=== PATIENT | male | born 1965 | race Two or more races ===

== ENCOUNTER 2017-11-09 11:49 | Emergency (ER) | payer OTHER ==
[~2017-11-09] VITALS: Ht 165.1 cm; Wt 96.3 kg
[2017-11-09 12:05] VITALS: BP 141/90; Ht 165.1 cm; Wt 96.3 kg
[2017-11-09 13:48] LABS: BASOPHIL % 0.7 % (0-2); PLATELET COUNT 283 x10^3mcL (130-400)
[2017-11-09 13:50] LABS: RED CELL DISTRIBUTION WIDTH 14.7 % (11.5-14.5)
[2017-11-09 14:07] LABS: CALCIUM 8.9 mg/dL (8.5-10.1); CARBON DIOXIDE 22.1 mmol/L (21-32); CREATININE SERUM 1.4 mg/dL (0.7-1.3); POTASSIUM SERUM 4.1 mmol/L (3.5-5.1)
[2017-11-09 14:12] LABS: ALBUMIN 3.8 g/dL (3.4-5.0); BILIRUBIN TOTAL 0.57 mg/dL (0.20-1.00); C REACTIVE PROTEIN 4.2 mg/dL (<=0.9)
[2017-11-09 15:16] LABS: ERYTHROCYTE SED RATE 14 mm/hr (0-15)
== END 2017-11-09 14:59 | disposition home or self-care (01) ==
LOC: ED 11:49
PROVIDERS: Emergency Medicine
DX: S93.401A Sprain of unspecified ligament of right ankle, initial encounter (principal); X58.XXXA Exposure to other specified factors, initial encounter; Y93.89 Activity, other specified; Y92.89 Other specified places as the place of occurrence of the external cause; Y99.8 Other external cause status
CPT/HCPCS: 36415

== ENCOUNTER 2018-05-19 11:14 | Emergency (ER) | payer OTHER ==
[~2018-05-19] VITALS: Ht 165.1 cm; Wt 96.7 kg
[2018-05-19 11:42] VITALS: BP 139/71; Ht 165.1 cm; Wt 96.7 kg
== END 2018-05-19 12:26 | disposition home or self-care (01) ==
LOC: ED 11:14
DX: L03.116 Cellulitis of left lower limb (principal)

== ENCOUNTER 2018-05-21 10:56 | Emergency (ER) | payer OTHER ==
[~2018-05-21] VITALS: Ht 165.1 cm; Wt 97.1 kg
[2018-05-21 11:09] VITALS: BP 143/73; Ht 165.1 cm; Wt 97.1 kg
== END 2018-05-21 13:39 | disposition home or self-care (01) ==
LOC: ED 10:56
DX: M10.9 Gout, unspecified (principal)
CPT/HCPCS: Q0092

== ENCOUNTER 2018-12-19 03:21 | Emergency (ER) | payer OTHER ==
[~2018-12-19] VITALS: Ht 165.1 cm; Wt 95.0 kg
[2018-12-19 03:41] VITALS: Ht 165.1 cm; Wt 95.0 kg
[2018-12-19 04:33] LABS: BASOPHIL % 0.6 % (0-2); PLATELET COUNT 278 x10^3mcL (130-400); RED CELL DISTRIBUTION WIDTH 13.4 % (11.5-14.5)
[2018-12-19 04:43] LABS: CALCIUM 9.2 mg/dL (8.5-10.1); CARBON DIOXIDE 24.1 mmol/L (21-32); CREATININE SERUM 1.4 mg/dL (0.7-1.3); POTASSIUM SERUM 4.5 mmol/L (3.5-5.1)
[2018-12-19 04:47] LABS: ALBUMIN 3.4 g/dL (3.4-5.0); BILIRUBIN TOTAL 0.49 mg/dL (0.20-1.00); TOTAL PROTEIN, SERUM 7.4 g/dL (6.4-8.2); URIC ACID 8.3 mg/dL (3.5-7.2)
[2018-12-19 05:18] VITALS: BP 143/84
== END 2018-12-19 05:18 | disposition home or self-care (01) ==
LOC: ED 03:21
PROVIDERS: Emergency Medicine
DX: M10.9 Gout, unspecified (principal); E11.9 Type 2 diabetes mellitus without complications
CPT/HCPCS: J1885

== ENCOUNTER 2020-05-30 07:53 | Emergency (ER) | payer OTHER ==
[~2020-05-30] VITALS: Ht 165.1 cm; Wt 90.7 kg
[2020-05-30 08:18] VITALS: Ht 165.1 cm; Wt 90.7 kg
[2020-05-30 12:43] LABS: microscopic required? NO
[2020-05-30 13:11] LABS: urine erythrocyte NEGATIVE (NEGATIVE)
[2020-05-30 13:14] LABS: PLATELET COUNT 263 x10^3mcL (152-348)
[2020-05-30 13:18] LABS: CHLORIDE SERUM 102 mmol/L (98-107); CREATININE SERUM 1.3 mg/dL (0.7-1.3); GFR1 > 60 mL/min; GLUCOSE SERUM 94 mg/dL (74-106); POTASSIUM SERUM 3.9 mmol/L (3.5-5.1); SODIUM SERUM 138 mmol/L (136-145)
[2020-05-30 13:25] LABS: RED CELL DISTRIBUTION WIDTH 16.4 % (12.1-16.2)
[2020-05-30 13:27] LABS: ALBUMIN 3.9 g/dL (3.4-5.0); ALKALINE PHOSPHATASE 90 U/L (46-116); ALT/SGPT 22 U/L (16-63); AST/SGOT 18 U/L (15-37); BILIRUBIN TOTAL 0.9 mg/dL (0.20-1.00); TOTAL PROTEIN, SERUM 7.6 g/dL (6.4-8.2)
[2020-05-30 15:03] VITALS: BP 141/85
== END 2020-05-30 15:03 | disposition home or self-care (01) ==
LOC: ED 07:53
PROVIDERS: Emergency Medicine
DX: M54.5 Low back pain (principal); I10 Essential (primary) hypertension; E11.9 Type 2 diabetes mellitus without complications
CPT/HCPCS: J1885